=== PATIENT | female | born 1960 | race Caucasian/White ===

== ENCOUNTER 2023-11-19 13:22 | Outpatient (CLI) | payer BC, SELFPAY ==
[2023-11-19 13:25] LABS: Basophils # 0.1 K/mm3 (0-0.2); Basophils % 1.1 % (0.1-2.0); Eosinophils # 0.4 K/mm3 (0.0-0.4); Eosinophils % 5.6 % (0.1-12.0); Hemoglobin 12.7 g/dL (12.2-16.2); Lymphocytes # 2.3 K/mm3 (0.7-4.5); Lymphocytes % 34.2 % (10-50); Mean Corpuscular HGB Conc 30.9 g/dL (31.8-35.4); Mean Corpuscular Hemoglobin 29.6 pg (27.0-31.2); Mean Corpuscular Volume 95.8 fl (81-99); Monocytes # 0.5 K/mm3 (0.1-1.0); Monocytes % 6.9 % (1.7-9.3); Neutrophils # 3.5 K/mm3 (1.8-7.8); Neutrophils % 52.2 % (37.0-80.0); Platelet Count 307 K/mm3 (142-424); Red Blood Count 4.28 M/mm3 (4.20-5.40); White Blood Count 6.7 K/mm3 (4.8-10.8)
[2023-11-19 14:07] LABS: Hemoglobin A1C 8.1 % (4.0-6.0)
[2023-11-19 14:13] LABS: Alanine Aminotransferase 16 U/L (12-78); Albumin Level 4.2 g/dl (3.5-5.0); Albumin/Globulin Ratio 1.8 (1.1-1.8); Alkaline Phosphatase 90 U/L (38-126); Anion Gap 7.4 mEq/L (5-15); Aspartate Amino Transferase 22 U/L (14-36); Bilirubin,Total 0.8 mg/dl (0.2-1.3); Blood Urea Nitrogen 12 mg/dl (7-17); Calcium 9.5 mg/dl (8.4-10.2); Carbon Dioxide 29 mmol/L (22.0-30.0); Chloride 105 mmol/L (98-107); Chol/HDL Ratio 3.3 (1-3.5); Cholesterol 204 mg/dl (140-200); Estimated Glomerular Filt Rate 124 ml/min (>60); GFR (African American) 150 ML/MIN (>60); Globulin 2.3 g/dL (1.3-3.2); Glucose 147 mg/dl (74-100); HDL Cholesterol 62 mg/dl (40-60); Potassium 4.4 mmoL/L (3.5-5.1); Sodium 137 mmol/L (136-145); Total Protein,Serum 6.5 g/dl (6.3-8.2); Triglycerides 223 mg/dl (30-150); VLDL Cholesterol 45 mg/dL (0-40)
[2023-11-19 14:24] LABS: Direct LDL Cholesterol 90.83 mg/dL (100-129)
[2023-11-19 14:30] LABS: 25-OH Vitamin D, Total 29.9 ng/mL (30-100)
[2023-11-19 14:40] LABS: Thyroid Stimulating Hormone 1.19 uIU/mL (0.465-4.68)
== END 2023-11-19 23:59 | disposition home or self-care (01) ==
LOC: LAB.DROPOF 13:22
PROVIDERS: PCP Internal Medicine; Visit Provider Internal Medicine
DX: Z00.00 Encounter for general adult medical examination without abnormal findings (principal); Z13.1 Encounter for screening for diabetes mellitus; Z13.29 Encounter for screening for other suspected endocrine disorder; Z13.21 Encounter for screening for nutritional disorder; Z13.220 Encounter for screening for lipoid disorders; E78.5 Hyperlipidemia, unspecified; I10 Essential (primary) hypertension; I25.10 Atherosclerotic heart disease of native coronary artery without angina pectoris; E11.9 Type 2 diabetes mellitus without complications; Z79.4 Long term (current) use of insulin
CPT/HCPCS: 80050; 80053; 80061; 82306; 83036; 84439; 84443; 85025

== ENCOUNTER 2023-11-23 13:11 | Outpatient (CLI) | payer BC, SELFPAY ==
[2023-11-23 15:30] LABS: Microscopic, Urine URINE MICROSCOPIC (MICROSCOPIC)
[2023-11-23 16:38] LABS: HIV (1&2) Antibody Rapid NONREACTIVE (NONREACTIVE)
[2023-11-23 17:04] LABS: Appearance,Urine CLEAR (Clear); Bilirubin,Urine Negative (Negative); Blood, Urine Negative (Negative); Color,Urine YELLOW (Yellow); Glucose,Urine (UA) Negative (Negative); Ketones,Urine Negative (Negative); Leukocyte Esterase,Urine Negative (Negative); Nitrate,Urine Negative (Negative); PH,Urine 5.5 (5.0-8.5); Protein,Urine Negative (Negative); Specific Gravity, Urine 1.015 (1.005-1.030); Urobilinogen,Urine 0.2 EU/dl (0.2)
[2023-11-25 07:28] LABS: HCV Ab Non Reactive (Non Reactive)
== END 2023-11-23 23:59 | disposition home or self-care (01) ==
LOC: LAB.DROPOF 11-24 13:12
PROVIDERS: PCP Internal Medicine; Visit Provider Urology
DX: Z11.59 Encounter for screening for other viral diseases (principal); Z11.4 Encounter for screening for human immunodeficiency virus [HIV]; N39.0 Urinary tract infection, site not specified; R06.00 Dyspnea, unspecified; R00.2 Palpitations; I20.9 Angina pectoris, unspecified; I10 Essential (primary) hypertension
CPT/HCPCS: 36415; 81001; 86803; 87086; 87389; 93270

== ENCOUNTER 2023-11-26 09:16 | Outpatient (CLI) | payer BC, SELFPAY ==
--- NOTE | 2023-11-26 09:16 | US_ITS ---
FINAL REPORT CLINICAL HISTORY: .utis COMPARISON: None FINDINGS: RENAL ULTRASOUND Ultrasound images of the kidneys were obtained. Limited images of the liver parenchyma demonstrates normal echogenicity. The right kidney measures 11.3 cm in length. It is normal echogenicity. There is no hydronephrosis. The left kidney measures 12.3 cm in length. It is normal echogenicity. There is no hydronephrosis. IMPRESSION: Normal renal ultrasound. Reviewed, Interpreted and Dictated by Rod Rose MD Transcribed by Annalisa Brown Authenticated and [facility]
--- NOTE | 2023-11-26 09:16 | US_ITS ---
FINAL REPORT CLINICAL HISTORY: UTI COMPARISON: None FINDINGS: ULTRASOUND BLADDER WITH POST VOID RESIDUAL Bladder volumes were estimated based on 3 dimensional measurements, pre- and postvoid. Prevoid bladder volume: 240 mls Postvoid bladder volume: 9 mls There is questionable minimal debris in the dependent portion of the urinary bladder. Outpouching is noted at the urinary bladder consistent with a small cystocele. IMPRESSION: Small cystocele. Minimal debris. Negligible postvoid residual. Reviewed, Interpreted and Dictated by Rod Rose MD Transcribed by Annalisa Brown Authenticated and [facility]
== END 2023-11-26 23:59 | disposition home or self-care (01) ==
LOC: RAD 09:16
PROVIDERS: PCP Internal Medicine; Visit Provider Urology
DX: N39.0 Urinary tract infection, site not specified (principal); N81.10 Cystocele, unspecified
CPT/HCPCS: 76770; 76857

== ENCOUNTER 2023-12-03 20:00 | Emergency (ER) | payer BC, SELFPAY ==
[2023-12-03] VITALS (9 sets, daily range): BP systolic 105–177; BP diastolic 57–73; PULSE 55–68; RESP 10–24; TEMP 36.6–36.9; O2SAT 93–98; BMI 35.0
--- NOTE | 2023-12-03 20:04 | ECG_ITS ---
APPROVED REPORT Exam: Resting ECG HR:66 bpm ECG Measurements Heart Rate 66 AXES KS 162 P 61 QRSd 94 QRS -10 QT 417 T 52 QTc [address] segment/T wave abnormality in anterior leads, no STEMI Electronically signed by : RAKAN AVILES, 12/04/2023 03:24:20
--- NOTE | 2023-12-03 20:11 | XR_ITS ---
PROCEDURE INFORMATION: Exam: XR Chest Exam date and time: 12/03/2023 8:13 PM Age: 63 years old Clinical indication: Pain; Chest pressure; Additional info: Chest pain, shortness of breath TECHNIQUE: Imaging protocol: Radiologic exam of the chest. Views: 1 view. Total images: 1 COMPARISON: No relevant prior studies available. FINDINGS: Tubes, catheters and devices: EKG leads are present. Lungs: Left basilar atelectasis and prominent epicardial fat pad. No consolidation. No pulmonary vascular congestion or edema. Pleural spaces: Unremarkable. No pleural effusion. No pneumothorax. Heart/Mediastinum: Unremarkable. No cardiomegaly. No mediastinal widening or hilar enlargement. Bones/joints: Osteopenia. Moderate degenerative changes lower thoracic spine. Mild degenerative changes bilateral shoulders/AC joints. Multiple remote left rib fractures. IMPRESSION: No radiographically acute cardiopulmonary process.
--- NOTE | 2023-12-03 20:13 | HMH.EDGENADL ---
Discharge Plan Disposition Patient Disposition: Home, Self-Care Condition: Good Prescriptions Prescriptions: No Action oxybutynin chloride 10 mg tablet extended release 24hr 10 mg PO DAILY Qty: 90 3RF estradiol 0.01 % (0.1 mg/gram) cream See Rx Instructions vaginal .COMPLEX Qty: 42.5 2RF Rx Instructions: Using finger technique daily for two weeks and then twice weekly vaginally; nitrofurantoin macrocrystal [Macrodantin] 100 mg capsule 100 mg PO HS Qty: 30 0RF Rx Instructions: must administer with a meal/food nitroglycerin 0.4 mg tablet, sublingual 0.4 mg sublingual Q5-15M PRN Rx Instructions: do not exceed 3 doses per episode famotidine [Heartburn Relief (famotidine)] 10 mg tablet 10 mg PO BID montelukast 10 mg tablet 10 mg PO DAILY potassium chloride 10 mEq capsule, extended release 10 meq PO DAILY ergocalciferol (vitamin D2) 1,250 mcg (50,000 unit) capsule 1,250 mcg PO WEEKLY roflumilast 500 mcg tablet 500 mcg PO DAILY furosemide 20 mg tablet 20 mg PO DAILY fenofibrate nanocrystallized 48 mg tablet 48 mg PO DAILY aspirin [Adult Low Dose Aspirin] 81 mg tablet,delayed release (DR/EC) 81 mg PO DAILY albuterol sulfate 90 mcg/actuation HFA aerosol inhaler 2 puff inhalation Q4-6H PRN ipratropium-albuterol 0.5 mg-3 mg(2.5 mg base)/3 mL solution for nebulization 3 ml inhalation Q4-6H PRN Breztri Aerosphere 160-9-4.8 mcg/actuation HFA aerosol inhaler 2 inh inhalation BID sucralfate [Carafate] 100 mg/mL suspension 10 ml PO BID insulin glargine [Lantus Solostar U-100 Insulin] 100 unit/mL (3 mL) insulin pen 25 unit SQ DAILY nystatin 100,000 unit/mL suspension 1 ml PO DAILY Rx Instructions: swish and swallow insulin lispro [Humalog KwikPen Insulin] 100 unit/mL insulin pen 1 sliding scale dose SQ USEASDIRECTD polyethylene glycol 3350 17 gram/dose powder 17 g PO DAILY (DME) oxygen-air delivery systems Device See Rx Instructions .Route Rx Instructions: As directed Bradleyunjaro 2.5 mg/0.5 mL pen injector 2.5 mg SQ WEEKLY Qty: 2.5 0RF Rx Instructions: for 4 weeks (DME) Dexcom G7 Medical Education Manager Misc See Rx Instructions .Route Qty: 1 10RF Rx Instructions: As directed (DME) Dexcom G7 Sensor Device See Rx Instructions .Route Qty: 1 10RF Rx Instructions: As directed esomeprazole magnesium 40 mg capsule,delayed release(DR/EC) 40 mg PO DAILY Qty: 90 0RF atorvastatin 40 mg tablet 40 mg PO DAILY Qty: 90 0RF carvedilol 25 mg tablet 25 mg PO BID Qty: 180 0RF Rx Instructions: must administer with a meal/food Referrals Follow up/Referrals: Anthony Patricio DO [Primary Care Provider] - See instructions Activity Restrictions/Add. 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 Continue to wear the Holter monitor until completion. If you develop any new or worsening symptoms, or if you become concerned for your health for any reason, return to the emergency department for evaluation Clinical Impressions Clinical Impression: Chest pain Print Language Print Language: Vietnamese Discharge ED Provider: Reji Baird General Adult HPI General Chief complaint: Chest Pain Stated complaint: Chest Pain Time Seen by Provider: 12/03/23 20:00 Source of Information: Patient History of Present Illness HPI narrative: Zeke Gee is a 63y female with a past medical history of coronary artery disease, previous VA, COPD, CHF, hypertension, type 2 diabetes who presents to the ED from home for complaints of chest heaviness and shortness of breath. Patient states that she was in her recliner approximately 20 minutes prior to arrival when she developed heaviness in the middle of her chest. She states that this is associated with shortness of breath. She notes that she wears oxygen at night for her COPD and was wearing oxygen at the time. She states that she is followed by cardiology here at [facility] and is currently wearing a Holter monitor and is on day 11 out of 14. She also states that she is scheduled to have a stress test later this month as she has had 3 episodes similar to this over the past month. She states that she chronically has swelling in both of her legs that has not worsened recently. She states that she has nitroglycerin at home but does not like to take it because it gives her a headache and did not take any today. She takes a daily aspirin, which she took this morning. Related Data Home Medications ?Medication ?Instructions ?Recorded ?Confirmed albuterol sulfate 90 mcg/actuation 2 puff inhalation Q4-6H PRN 11/17/23 11/23/23 aerosol inhaler aspirin 81 mg tablet,delayed 81 mg PO DAILY 11/17/23 11/23/23 release (Adult Low Dose Aspirin) budesonide 160 mcg-glycopyr 9 2 inh inhalation BID 11/17/23 11/23/23 mcg-formot 4.8 mcg/actuation HFA inhaler (Breztri Aerosphere) ergocalciferol (vitamin D2) 1,250 1,250 mcg PO WEEKLY 11/17/23 11/23/23 mcg (50,000 unit) capsule famotidine 10 mg tablet (Heartburn 10 mg PO BID 11/17/23 11/23/23 Relief (famotidine)) fenofibrate nanocrystallized 48 mg 48 mg PO DAILY 11/17/23 11/23/23 tablet furosemide 20 mg tablet 20 mg PO DAILY 11/17/23 11/23/23 insulin glargine 100 unit/mL (3 25 unit SQ DAILY 11/17/23 11/23/23 mL) subcutaneous pen (Lantus Solostar U-100 Insulin) insulin lispro 100 unit/mL 1 sliding scale dose SQ 11/17/23 11/23/23 subcutaneous pen (Humalog KwikPen USEASDIRECTD (U-100) Insulin) ipratropium 0.5 mg-albuterol 3 mg 3 ml inhalation Q4-6H PRN 11/17/23 11/23/23 (2.5 mg base)/3 mL nebulization soln montelukast 10 mg tablet 10 mg PO DAILY 11/17/23 11/23/23 nitroglycerin 0.4 mg sublingual 0.4 mg sublingual Q5-15M PRN 11/17/23 11/23/23 tablet nystatin 100,000 unit/mL oral 1 ml PO DAILY 11/17/23 11/23/23 suspension oxygen-air delivery systems 11/17/23 11/23/23 polyethylene glycol 3350 17 17 g PO DAILY 11/17/23 11/23/23 gram/dose oral powder potassium chloride 10 mEq 10 meq PO DAILY 11/17/23 11/23/23 capsule,extended release roflumilast 500 mcg tablet 500 mcg PO DAILY 11/17/23 11/23/23 sucralfate 100 mg/mL oral 10 ml PO BID 11/17/23 11/23/23 suspension (Carafate) Previous Rx's ?Medication ?Instructions ?Recorded tirzepatide 2.5 mg/0.5 mL 2.5 mg (0.5 mL) SQ WEEKLY #2.5 mL 11/17/23 subcutaneous pen injector (Mounjaro) estradiol 0.01% (0.1 mg/gram) See Rx Instructions vaginal 11/23/23 vaginal cream .COMPLEX #42.5 grams nitrofurantoin macrocrystal 100 mg 100 mg PO HS #30 caps 11/23/23 capsule (Macrodantin) oxybutynin chloride 10 mg 10 mg PO DAILY #90 tabs 11/23/23 tablet,extended release 24 hr blood-glucose meter,continuous #1 ea 11/24/23 (Dexcom G7 Medical Education Manager) blood-glucose sensor (Dexcom G7 #1 ea 11/24/23 Sensor device) atorvastatin 40 mg tablet 40 mg PO DAILY #90 tabs 11/27/23 carvedilol 25 mg tablet 25 mg PO BID #180 tabs 11/27/23 esomeprazole magnesium 40 mg 40 mg PO DAILY #90 caps 11/27/23 capsule,delayed release Allergies Allergy/AdvReac Type Severity Reaction Status Date / Time No Known Allergies Allergy Verified 11/23/23 13:09 [facility] Disclaimer: The information contained in this section may have been updated after the patient was seen, as this information can be updated by other users. Medical History (Updated 12/03/23 @ 23:28 by Reji Baird MD) Angina pectoris Coronary artery disease Hx of appendicitis Abnormal findings on esophagogastroduodenoscopy (EGD) Oxygen desaturation during sleep CHF (congestive heart failure) Acid reflux COPD (chronic obstructive pulmonary disease) Vitamin D deficiency History of low potassium Hyperlipidemia Hypertension Type II diabetes mellitus Surgical History Hx of cholecystectomy History of esophagogastroduodenoscopy (EGD) History of colonoscopy Social History Smoking Status: Never smoker alcohol intake: former substance use type: denies use current occupational status: disabled Travel in the last 8 weeks: None ROS Obtained: Yes Systems reviewed as appropriate & no additional complaints except as documented Physical Exam General General appearance: alert, in no apparent distress and anxious Head Head exam: atraumatic Eye Eye exam: Present normal appearance ENT ENT exam: Present normal external ear exam Neck Neck exam: Present normal inspection Chest Chest inspection: Present normal inspection and symmetric chest wall rise; Absent tenderness Respiratory Respiratory exam: Present normal lung sounds bilaterally; Absent respiratory distress Cardiovascular Cardiovascular exam: Present regular rate, normal rhythm and normal heart sounds Abdominal Exam Abdominal exam: Present soft; Absent distention or tenderness Extremities Exam Extremities exam: Present normal inspection and edema Back Exam Back exam: Present normal inspection Neurological Exam Neurological exam: Present alert and oriented X3 Psychiatric Psychiatric exam: Present normal affect Skin Skin exam: Present warm and dry Medical Decision Making Medical Records Medical records reviewed: Yes I reviewed the patient's medical records. Screening: Per USPSTF and CDC recommendations, given the prevalence of disease in our region, it is our hospital?s policy to screen for HIV and viral Hepatitis for all patients aged 18 and over and those with ongoing risk factors. Gerardo Inquiry Pt receiving controlled substance: No Vital Signs: 12/03/23 20:01 12/03/23 20:31 12/03/23 20:39 Temperature 98.4 F Temperature Source Oral Pulse Rate 67 66 Pulse Rate [Apical] 66 Respiratory Rate 14 24 Blood Pressure 108/63 L Blood Pressure [Right Arm] 177/73 H Blood Pressure Mean [Right Arm] 107 Blood Pressure Source [Right Arm] Automatic Cuff Blood Pressure Position [Right Arm] Sitting 02 Sat by Pulse Oximetry 96 93 L Oxygen Delivery Method Room Air 12/03/23 21:00 12/03/23 21:31 12/03/23 22:01 Temperature Temperature Source Pulse Rate 63 60 Pulse Rate [Apical] Respiratory Rate 14 18 13 Blood Pressure 105/58 L 115/68 121/67 Blood Pressure [Right Arm] Blood Pressure Mean [Right Arm] Blood Pressure Source [Right Arm] Blood Pressure Position [Right Arm] 02 Sat by Pulse Oximetry 97 98 Oxygen Delivery Method 12/03/23 22:30 12/03/23 23:00 12/03/23 23:29 Temperature 97.9 F Temperature Source Oral Pulse Rate 68 55 L 59 L Pulse Rate [Apical] Respiratory Rate 10 L 22 16 Blood Pressure 118/63 115/57 L 115/57 L Blood Pressure [Right Arm] Blood Pressure Mean [Right Arm] Blood Pressure Source [Right Arm] Blood Pressure Position [Right Arm] 02 Sat by Pulse Oximetry 98 96 Oxygen Delivery Method Room Air Lab Data Lab Results 12/03/23 20:05: WBC 9.2, RBC 4.30, Hgb 12.9, Hct 37.8, MCV 87.7, MCH 30.0, MCHC 34.2, RDW 14.1, Plt Count 308, MPV 7.6, Neut % (Auto) 52.9, Lymph % (Auto) 34.3, [place] % (Auto) 6.4, Eos % (Auto) 5.3, Baso % (Auto) 1.1, Neut # (Auto) 4.9, Lymph # (Auto) 3.1, [place] # (Auto) 0.6, Eos # (Auto) 0.5 H, Baso # (Auto) 0.1, Sodium 138, Potassium 3.7, Chloride 104, Carbon Dioxide 26, Anion Gap 11.7, BUN 19 H, Creatinine 0.60, Estimated Creat Clear 91, Estimated GFR 101, Est GFR ( Amer) 122, Glucose 173 H, Calcium 9.6, Troponin I < 0.01, NT-Pro-B Natriuret Pep 99.4, TSH 0.96 12/03/23 22:46: Troponin I < 0.01 12/03/23 20:05 12/03/23 20:05 Orders (Tests/Meds): ED MEDICATIONS Discontinued Medications Generic Name Dose Route Start Last Admin Trade Name Filiberto PRN Reason Stop Dose Admin Nitroglycerin 0.4 mg 12/03/23 20:11 12/03/23 20:17 Nitroglycerin 0.4mg Sl Tablet SL 12/03/23 20:12 0.4 mg ONCE ONE Administration ORDERS Category Date Time Status CXR --portable [XR chest portable] Stat Exams 12/03/23 20:11 Completed BMP [Basic Metabolic Panel] Stat Lab 12/03/23 20:05 Completed BNP [NT Pro Brain Natriuretic Pep.] Stat Lab 12/03/23 20:05 Completed CBC w/Auto Diff [Complete Blood Count Auto Diff] Stat Lab 12/03/23 20:05 Completed TSH [Thyroid Stimulating Hormone] Stat Lab 12/03/23 20:05 Completed Troponin I Q3H Lab 12/03/23 22:46 Completed Troponin I Q3H Lab 12/04/23 02:15 Ordered Troponin I Stat Lab 12/03/23 20:05 Completed ECG Data Tracing #1: I reviewed this ECG and interpreted as documented below: EKG interpreted by me personally at 2004. Normal sinus rhythm. Ventricular rate of [address]pm[address] elevations or depressions. T wave inversions in V2 and V3. Medical Decision Narrative: Zeke Gee is a 63-year-old female with a history of coronary artery disease, hypertension, type 2 diabetes, COPD presents to the emergency department for complaints of chest heaviness in the middle of her chest that began approximately 20 minutes prior to arrival. Patient notes that she has had episodes like this in the past, making this the third episode this month. She is currently wearing a Holter monitor and is followed by cardiology here [facility]. She is on day with her Holter monitor. She states that she did not take any nitroglycerin prior to arrival as it often gives her headache. She took baby aspirin this morning. She was reporting some mild shortness of breath as well. On arrival, patient is hypertensive with blood pressure 177/73, heart rate 66 bpm, breathing comfortably on room air with oxygen saturation at 96%. Afebrile. Patient was amenable to receiving a sublingual nitroglycerin at this time. Differential diagnosis: ACS, pneumonia, palpitations, hyper/hypothyroidism, CHF, among others. The most comorbid conditions were considered and worked up based on her physical exam and history. Workup in the emergency department included: CBC with differential, BMP, troponin x 2, BNP, TSH, chest x-ray D-dimer was considered, however patient's Wells score is 0 and there is low concern for pulmonary embolism at this time. No D-dimer was pursued at this time. Patient's chest x-ray was interpreted by me personally. No focal consolidations, no widening of the mediastinum, no pneumothorax. Unremarkable chest x-ray. See radiology report for details. EKG, as stated above, was unremarkable for any acute pathology. Labs were interpreted by me personally and troponin was less than 0.01 x 2, TSH within normal limits, BNP within normal limits, BMP unremarkable nonactionable, CBC unremarkable and nonactionable On reassessment, patient reported resolution of her symptoms stated that she felt a lot better. Her workup today has not demonstrated any acute pathology and she has remained hemodynamically stable throughout her entire ED visit with improvement of her blood pressure without intervention. Given this, in fact that she has already established with cardiology with Holter monitor in place and close follow-up, is felt that she is appropriate for discharge at this time with plan to follow-up with them as scheduled. Return precautions were given. All questions were answered. She demonstrated understanding and was agreeable with this plan. She was then discharged from the emergency department in stable condition Critical Care Critical Care Time Critical Care Time: No
[2023-12-03] MEDS: NITROGLYCERIN 0.4MG SL TABLET 0.4 MG SL (20:17)
[2023-12-03 20:24] LABS: Basophils # 0.1 K/mm3 (0-0.2); Basophils % 1.1 % (0.1-2.0); Chloride 104 mmol/L (98-107); Eosinophils # 0.5 K/mm3 (0.0-0.4); Eosinophils % 5.3 % (0.1-12.0); Hematocrit 37.8 % (37.0-47.0); Hemoglobin 12.9 g/dL (12.2-16.2); Lymphocytes # 3.1 K/mm3 (0.7-4.5); Lymphocytes % 34.3 % (10-50); Mean Corpuscular HGB Conc 34.2 g/dL (31.8-35.4); Mean Corpuscular Volume 87.7 fl (81-99); Mean Platelet Volume 7.6 fl (7.4-10.4); Monocytes # 0.6 K/mm3 (0.1-1.0); Monocytes % 6.4 % (1.7-9.3); Neutrophils # 4.9 K/mm3 (1.8-7.8); Neutrophils % 52.9 % (37.0-80.0); Platelet Count 308 K/mm3 (142-424); Red Cell Distribution Width 14.1 % (11.5-17.5); White Blood Count 9.2 K/mm3 (4.8-10.8)
[2023-12-03 20:25] LABS: Potassium 3.7 mmoL/L (3.5-5.1); Sodium 138 mmol/L (136-145)
[2023-12-03 20:28] LABS: Anion Gap 11.7 mEq/L (5-15); Blood Urea Nitrogen 19 mg/dl (7-17); Calcium 9.6 mg/dl (8.4-10.2); Carbon Dioxide 26 mmol/L (22.0-30.0); Creatinine Clearance Estimated 91 mL/min (50-200); Estimated Glomerular Filt Rate 101 ml/min (>60); GFR (African American) 122 ML/MIN (>60); Glucose 173 mg/dl (74-100)
[2023-12-03 20:39] LABS: NT Pro Brain Natriuretic Pep. 99.4 pg/mL (0-125)
[2023-12-03 20:49] LABS: Troponin I < 0.01 ng/ml (0.00-0.034)
[2023-12-03 20:59] LABS: Thyroid Stimulating Hormone 0.96 uIU/mL (0.465-4.68)
--- NOTE | 2023-12-03 22:47 | PC.NURSE ---
2nd trop sent at 6850
[2023-12-03 23:20] LABS: Troponin I < 0.01 ng/ml (0.00-0.034)
== END 2023-12-03 23:40 | disposition home or self-care (01) ==
PROVIDERS: Emergency Provider Student in an Organized Health Care Education/Training Program; PCP Internal Medicine
DX: R07.9 Chest pain, unspecified (principal); R06.02 Shortness of breath
CPT/HCPCS: 71045; 80048; 83880; 84443; 84484; 85025; 93005; 99284

== ENCOUNTER 2023-12-21 14:06 | Outpatient (CLI) | payer BC, SELFPAY ==
--- NOTE | 2023-12-21 14:10 | MM_ITS ---
PROCEDURE INFORMATION: Exam: MG Bilateral Screening 3D Mammography Exam date and time: 12/21/2023 2:09 PM Age: 63 years old Clinical indication: Screening examination TECHNIQUE: Imaging protocol: Bilateral Screening tomosynthesis and 2D mammography including computer-aided detection (CAD) when performed. COMPARISON: No relevant prior studies available. FINDINGS: MAMMOGRAPHY: Breast composition: There are scattered areas of fibroglandular density. Mass: None. Architectural distortion: None. Calcifications: No suspicious calcifications. Asymmetric density: None. Skin thickening: None. Axillary adenopathy: None. IMPRESSION: No mammographic evidence of malignancy. Annual screening is recommended unless otherwise clinically indicated. ASSESSMENT: BI-RADS Category 1: Negative.
== END 2023-12-21 23:59 | disposition home or self-care (01) ==
LOC: RAD 14:07
PROVIDERS: PCP Internal Medicine; Visit Provider Internal Medicine
DX: R06.00 Dyspnea, unspecified (principal); R00.2 Palpitations; I20.9 Angina pectoris, unspecified; Z12.31 Encounter for screening mammogram for malignant neoplasm of breast
CPT/HCPCS: 77063; 77067

== ENCOUNTER 2024-01-05 06:50 | Outpatient (CLI) | payer BC, SELFPAY ==
--- NOTE | 2024-01-05 07:36 | NM_ITS ---
APPROVED REPORT Exam: Nuclear Stress Test Indication: Chest pain, SOB, Palpitations, HTN, DM, High cholesterol, Family history Patient Location: Outpatient Stress Tech: Amaya Nuñez MI Tech:Mariah Quinteros, ARRT, RT (R)(N) Ht: 5 ft 7 in Wt: 224 lbs Bra Size: 42D HR: 66 bpm BP: 131/70 mmHg BSA: 2.12 m2 TID: 1.16 BMI: 35.0 History: Chest pain, SOB, Palpitations, HTN, DM, High cholesterol, Family history Procedure: Patient received 0.4 mg of intravenous Lexiscan, resting heart rate 77 bpm, resting blood pressure 131/70 mmHg, with Lexiscan maximum heart rate achieved was 77 bpm which is % of the maximum predicted heart rate and blood pressure was 94/56 mmHg. With Lexiscan, patient denied any complaint of chest pain. Cardiac Stress and Resting SPECT Images: Cardiac Stress and Resting SPECT images were obtained using technetium 99m Myoview 32.2 mCi stress and 10.33 mCi at rest. Resting and stress imaging in supine and prone positions demonstrate no evidence of fixed or reversible perfusion defects. Gated imaging demonstrates normal global and regional LV systolic function. LVEF is calculated at 59%. Conclusion: No evidence of fixed or reversible perfusion defects. Gated imaging demonstrates normal global and regional LV systolic function. LVEF is calculated at 59%. Electronically signed by : Dora Francis MD 01/06/2024 09:23:45
[2024-01-05] MEDS: ISOTOPE MYOVIEW (PER STUDY) 1 DOSE IV (09:00)
[2024-01-05] MEDS: REGADENOSON 0.4MG/5ML SYRINGE 0.4 MG IV (09:00)
[2024-01-05] MEDS: SODIUM CHLORIDE 0.9% 10ML SYR (RAD ONLY) 10 ML IV ×2 (09:00)
--- NOTE | 2024-01-05 09:45 | CA_ITS ---
APPROVED REPORT EXAM: Comprehensive 2D, Doppler, and color-flow Echocardiogram Publication Manager: SHAD Urrutia, RVS Ht: 5 ft 6 in Wt: 224lbs BSA: 2.10 BP: 171/81 mmHg Indications: Chest Pain, Shortness of Breath, Diabetes, Palpitations, CAD, Hyperlipidemia 2D Dimensions IVSd 0.96 cm LVEF (Visual) 54.10 % PWd 0.96 cm LA Volume 69.10 mL LVDd 5.48 cm LA Volume Index 32.10 mL/m2 (M/F) 16-34 LVDs 3.93 cm Left Atrium 3.53 cm M-Mode Dimensions LA Diam 3.60 cm (1.9-4.0) EPSs 0.84 cm TAPSE 2.05 (<1.7) LV Diastology E Decel Time 310 (160-240 msec) E/A Ratio 0.73 MED A' 12.00 cm/s LAT A' 12.90 cm/s Aortic Valve WILFRIDO Index 1.16 cm2/m2 AoV Peak Royal. 106.0 (50-130 cm/s) AO Peak GR. 4.50 mmHg AO Mean GR. 2.30 (<5 mmHg) AO VTI 24.9 (18-25 cm) WILFRIDO (VTI) 2.49 (2.5-4.5 cm2) Mitral Valve MV A Velocity 87.0 (40-130 cm/s) E/A Ratio 0.73 Pulmonary Valve PV Peak Velocity 76.0 (50-150 cm/s) Tricuspid Valve TR P. Velocity 226.00 cm/s RAP Estimate 10.00 mmHg RVSP 30.40 mmHg Left Ventricle The left ventricle is normal size. The left ventricular systolic function is normal. The left ventricular ejection fraction is within the normal range. There is increased LV wall thickness. There is normal LV segmental wall motion. Transmitral Doppler flow pattern suggests impaired LV relaxation. LVEF is 55%. Right Ventricle Right ventricle is mildly dilated. Right ventricle is mildly hypokinetic. Atria Left atrium is mildly dilated. Right atrium is mildly dilated. There is no Doppler evidence of interatrial shunt. Aortic Valve The aortic valve is mildly thickened. There is no aortic valvular stenosis. No aortic regurgitation is present. Mitral Valve The mitral valve is normal in structure. No evidence of mitral valve stenosis. There is no mitral valve regurgitation noted. Tricuspid Valve The tricuspid valve leaflets are thin and pliable. Trace tricuspid regurgitation. There is insufficient TR jet to estimate RVSP. Pulmonic Valve The pulmonary valve is normal in structure. Trace pulmonic regurgitation. Great Vessels The aortic root is normal in size. IVC is normal in size and collapses >50% with inspiration. Pericardium There is no pericardial effusion. Other Information Study Quality: Fair Conclusion Normal LV systolic function. Mild RV dilation with mild reduction in RV function. Mild biatrial dilation. No significant valvular stenosis or regurgitation. Electronically signed by : Dora Francis MD 01/07/2024 12:37:55
== END 2024-01-05 23:59 | disposition home or self-care (01) ==
LOC: RAD 06:51
PROVIDERS: PCP Internal Medicine; Visit Provider Nurse Practitioner
DX: R00.2 Palpitations (principal); R06.00 Dyspnea, unspecified; I20.9 Angina pectoris, unspecified
CPT/HCPCS: 78452; 93017; 93018; 93306; A9502; J2785

== ENCOUNTER 2024-01-11 15:03 | Outpatient (CLI) | payer BC, SELFPAY ==
[2024-01-11 15:33] LABS: Basophils # 0.1 K/mm3 (0-0.2); Basophils % 1.4 % (0.1-2.0); Eosinophils # 0.3 K/mm3 (0.0-0.4); Hematocrit 39.5 % (37.0-47.0); Hemoglobin 13.4 g/dL (12.2-16.2); Lymphocytes # 2.6 K/mm3 (0.7-4.5); Lymphocytes % 32.4 % (10-50); Mean Corpuscular Volume 88.2 fl (81-99); Mean Platelet Volume 7.5 fl (7.4-10.4); Monocytes # 0.5 K/mm3 (0.1-1.0); Monocytes % 6.1 % (1.7-9.3); Neutrophils # 4.5 K/mm3 (1.8-7.8); Platelet Count 312 K/mm3 (142-424); Red Blood Count 4.49 M/mm3 (4.20-5.40)
[2024-01-11 15:48] LABS: Magnesium 1.9 mg/dl (1.6-2.3)
[2024-01-11 15:53] LABS: C-Reactive Protein 3.5 mg/L (0-4)
[2024-01-11 16:06] LABS: 25-OH Vitamin D, Total 33.9 ng/mL (30-100)
[2024-01-11 16:39] LABS: Vitamin B12 474 pg/mL (239-931)
[2024-01-15 18:10] LABS: D001-IgE D pteronyssinus <0.10 kU/L (Class 0); D002-IgE D farinae <0.10 kU/L (Class 0); E001-IgE Cat Dander <0.10 kU/L (Class 0); E005-IgE Dog Dander <0.10 kU/L (Class 0); E072-IgE Mouse Urine <0.10 kU/L (Class 0); G002-IgE Bermuda Grass <0.10 kU/L (Class 0); G006-IgE Timothy Grass <0.10 kU/L (Class 0); I006-IgE Cockroach, German <0.10 kU/L (Class 0); Immunoglobulin E, Total 3 IU/mL (6-495); M001-IgE Penicillium chrysogen <0.10 kU/L (Class 0); M002-IgE Cladosporium herbarum <0.10 kU/L (Class 0); M003-IgE Aspergillus fumigatus <0.10 kU/L (Class 0); M006-IgE Alternaria alternata <0.10 kU/L (Class 0); T001-IgE Maple/Box Elder <0.10 kU/L (Class 0); T003-IgE Common Silver Birch <0.10 kU/L (Class 0); T006-IgE Cedar, Mountain <0.10 kU/L (Class 0); T007-IgE Oak, White <0.10 kU/L (Class 0); T008-IgE Elm, American <0.10 kU/L (Class 0); T010-IgE Walnut <0.10 kU/L (Class 0); T011-IgE Maple Leaf Sycamore <0.10 kU/L (Class 0); T014-IgE Cottonwood <0.10 kU/L (Class 0); T015-IgE Ash, White <0.10 kU/L (Class 0); T022-IgE Pecan, Hickory <0.10 kU/L (Class 0); T070-IgE White Mulberry <0.10 kU/L (Class 0); W001-IgE Ragweed, Short <0.10 kU/L (Class 0); W011-IgE Thistle, Russian <0.10 kU/L (Class 0); W014-IgE Pigweed, Common <0.10 kU/L (Class 0); W018-IgE Sheep Sorrel <0.10 kU/L (Class 0)
[2024-01-20 09:58] LABS: Antinuclear Antibodies (ANA) NEGATIVE
== END 2024-01-11 23:59 | disposition home or self-care (01) ==
PROVIDERS: Nurse Practitioner Family; PCP Internal Medicine; Visit Provider Internal Medicine Pulmonary Disease
DX: R06.09 Other forms of dyspnea (principal); J84.9 Interstitial pulmonary disease, unspecified; J45.909 Unspecified asthma, uncomplicated; K21.9 Gastro-esophageal reflux disease without esophagitis; Z51.81 Encounter for therapeutic drug level monitoring; Z79.899 Other long term (current) drug therapy
CPT/HCPCS: 36415; 82306; 82607; 82785; 83735; 85025; 86003; 86038; 86140; 86225; 86235

== ENCOUNTER 2024-02-03 16:34 | Outpatient (CLI) | payer OTHER, SELFPAY ==
[2024-02-03 16:28] LABS: Coronavirus 19, PCR Not Detected (NotDetected); Influenza A, PCR Not Detected (NotDetected); Influenza B, PCR Not Detected (NotDetected)
== END 2024-02-03 23:59 | disposition home or self-care (01) ==
LOC: LAB.DROPOF 16:35
PROVIDERS: PCP Internal Medicine; Visit Provider Internal Medicine
DX: J02.9 Acute pharyngitis, unspecified (principal); R06.00 Dyspnea, unspecified; R05.9 Cough, unspecified; R53.83 Other fatigue
CPT/HCPCS: 87636

== ENCOUNTER 2024-03-17 09:32 | Outpatient (CLI) | payer OTHER, SELFPAY | END 2024-03-17 23:59 | disposition home or self-care (01) | LOC: RT 09:33 | PROVIDERS: PCP Nurse Practitioner; Visit Provider Internal Medicine Pulmonary Disease | DX: R06.09 Other forms of dyspnea (principal) | CPT/HCPCS: 94060; 94618; 94726; 94729 ==

== ENCOUNTER 2024-05-10 09:16 | Outpatient (CLI) | payer OTHER, SELFPAY ==
[2024-05-10 10:09] LABS: Basophils # 0.1 K/mm3 (0-0.2); Basophils % 0.5 % (0.1-2.0); Eosinophils # 0.1 K/mm3 (0.0-0.4); Eosinophils % 1.3 % (0.1-12.0); Hematocrit 36.9 % (37.0-47.0); Hemoglobin 12.3 g/dL (12.2-16.2); Lymphocytes # 1.9 K/mm3 (0.7-4.5); Lymphocytes % 18.3 % (10-50); Mean Corpuscular HGB Conc 33.3 g/dL (31.8-35.4); Mean Corpuscular Hemoglobin 30.5 pg (27.0-31.2); Mean Corpuscular Volume 91.6 fl (81-99); Mean Platelet Volume 10.7 fl (7.4-10.4); Monocytes # 0.5 K/mm3 (0.1-1.0); Monocytes % 4.8 % (1.7-9.3); Neutrophils # 7.7 K/mm3 (1.8-7.8); Neutrophils % 74.8 % (37.0-80.0); Platelet Count 252 K/mm3 (142-424); Red Blood Count 4.03 M/mm3 (4.20-5.40); Red Cell Distribution Width 13.1 % (11.5-17.5); White Blood Count 10.2 K/mm3 (4.8-10.8)
[2024-05-10 10:19] LABS: Alanine Aminotransferase 21 U/L (12-78); Albumin Level 4.1 g/dl (3.5-5.0); Alkaline Phosphatase 96 U/L (38-126); Aspartate Amino Transferase 21 U/L (14-36); Bilirubin,Direct 0.1 mg/dl (0.0-0.4); Bilirubin,Indirect 0.5 mg/dL (0.0-0.9); Bilirubin,Total 0.6 mg/dl (0.2-1.3); Bilirubin,Unconjugated 0.5 mg/dL (0.0-1.1); Blood Urea Nitrogen 29 mg/dl (7-17); Calcium 8.8 mg/dl (8.4-10.2); Carbon Dioxide 29 mmol/L (22.0-30.0); Chloride 104 mmol/L (98-107); Chol/HDL Ratio 2.2 (1-3.5); Cholesterol 178 mg/dl (140-200); Estimated Glomerular Filt Rate 84 ml/min (>60); GFR (African American) 102 ML/MIN (>60); Glucose 237 mg/dl (74-100); HDL Cholesterol 80 mg/dl (40-60); Sodium 136 mmol/L (136-145); Total Protein,Serum 6.1 g/dl (6.3-8.2); Triglycerides 201 mg/dl (30-150); VLDL Cholesterol 40 mg/dL (0-40)
[2024-05-10 10:30] LABS: Direct LDL Cholesterol 58.61 mg/dL (100-129)
[2024-05-10 10:49] LABS: Thyroid Stimulating Hormone 1.69 uIU/mL (0.465-4.68)
[2024-05-10 11:52] LABS: Free T4 (Free Thyroxine) 1.37 ng/dl (0.78-2.19)
== END 2024-05-10 23:59 | disposition home or self-care (01) ==
LOC: LAB 09:17
PROVIDERS: PCP Nurse Practitioner; Visit Provider Nurse Practitioner
DX: R00.2 Palpitations (principal); R93.1 Abnormal findings on diagnostic imaging of heart and coronary circulation; I51.7 Cardiomegaly; R06.09 Other forms of dyspnea; I25.10 Atherosclerotic heart disease of native coronary artery without angina pectoris; J44.9 Chronic obstructive pulmonary disease, unspecified; I10 Essential (primary) hypertension
CPT/HCPCS: 36415; 80048; 80061; 80076; 83735; 84439; 84443; 85025; 93270

== ENCOUNTER 2024-06-09 11:13 | Outpatient (CLI) | payer OTHER, SELFPAY ==
--- NOTE | 2024-06-09 11:17 | XR_ITS ---
FINAL REPORT CLINICAL HISTORY: dyspnea,wheezing COMPARISON: 12/03/2023 FINDINGS: CHEST 2 VIEWS PA AND LATERAL The heart is normal in size. The mediastinum is unremarkable. The lungs are underinflated with scarring at the left base. There is no pneumothorax. IMPRESSION: No acute process. Reviewed, Interpreted and Dictated by Rod Rose MD Transcribed by Tami Le Authenticated and [facility]
== END 2024-06-09 23:59 | disposition home or self-care (01) ==
LOC: RAD 11:15
PROVIDERS: PCP Nurse Practitioner; Visit Provider Nurse Practitioner
DX: R06.09 Other forms of dyspnea (principal); R06.2 Wheezing
CPT/HCPCS: 71046

== ENCOUNTER 2024-06-30 07:38 | Outpatient (CLI) | payer OTHER, SELFPAY ==
--- NOTE | 2024-06-30 | CA_ITS ---
APPROVED REPORT EXAM: Comprehensive 2D, Doppler, and color-flow Echocardiogram Chrome Plater: Jewels Hooper RVT Ht: 5 ft 7 in Wt: 226lbs BSA: 2.13 BP: 155/74 mmHg Indications: DYSPENA,CAD,CARDIOMEGALY,COPD,CP,PALPS,A-FIB,LARS,CHF,DM,HTN,HLD 2D Dimensions Left Atrium 2.99 cm F: 2.7 - 3.8 LA Volume 31.50 mL RVID Base (AP4) 2.77 cm (M/F) 2.5-4.1 LA Volume Index 14.79 mL/m2 (M/F) 16-34 LVOT 2.17 cm (M/F) 1.5-2.5 EF AP4 53.10 % GL Strain -17.4 % M-Mode Dimensions RVDd 3.16 cm (0.9-2.6) LVDd 5.05 cm (3.5-5.7) Ao Diam 3.61 cm (2.0-3.7) LVDs 3.48 cm (3.5-5.7) IVSd 0.64 cm (0.6-1.1) PWd 0.72 cm (0.6-1.1) EF (Teich) 58.50% FS 31.10% EDV (Teich) 121.00 mL TAPSE 2.02 (<1.7) ESV (Teich) 50.20 mL LV Diastology E Decel Time 194 (160-240 msec) E/A Ratio 0.9 MED E' 9.3 (>= 7 cm/sec) E'/MED E' Ratio 7.75 (<= 14) LAT E' 8.6 (>= 10 cm/sec) E/LAT E' Ratio 8.38 (<= 14) Aortic Valve LVOT Max 101.0 (70-110 cm/s) WILFRIDO Index 1.57 cm2/m2 LVOT VTI 21.74 cm AoV Peak Royal. 109.0 (50-130 cm/s) AO Peak GR. 4.20 mmHg AO Mean GR. 2.80 (<5 mmHg) AO VTI 24.1 (18-25 cm) WILFRIDO (VTI) 3.34 (2.5-4.5 cm2) Mitral Valve MV E Max Royal. 72.0 (40-130 cm/s) MV A Velocity 83.0 (40-130 cm/s) E/A Ratio 0.87 MV Decel. Time 194 (160-240 ms) Tricuspid Valve TR P. Velocity 281.00 cm/s RAP Estimate 10.00 mmHg RVSP 41.50 mmHg Left Ventricle The left ventricle is normal size. The left ventricular systolic function is normal. The left ventricular ejection fraction is within the normal range. There is increased LV wall thickness. There is normal LV segmental wall motion. Transmitral Doppler flow pattern suggests impaired LV relaxation. LVEF is 55%. Right Ventricle Right ventricle is mildly dilated. The right ventricular systolic function is normal. Atria Left atrium is mildly dilated. Right atrium is mildly dilated. There is no Doppler evidence of interatrial shunt. Aortic Valve The aortic valve is mildly thickened. Trace aortic regurgitation. There is no aortic valvular stenosis. Mitral Valve The mitral valve leaflets are mildly thickened. Mild mitral regurgitation. No evidence of mitral valve stenosis. Tricuspid Valve Tricuspid valve is grossly normal in structure and function. Mild tricuspid regurgitation. RVSP is 20-25 mmHg. Pulmonic Valve The pulmonary valve is normal in structure. Trace pulmonic regurgitation. Great Vessels The aortic root is normal in size. IVC is normal in size and collapses >50% with inspiration. Pericardium There is no pericardial effusion. Other Information Study Quality: Fair Conclusion Normal biventricular systolic function. Mild RV dilation. Mild biatrial dilation. Mild MR, mild TR. Electronically signed by : Dora Francis MD 06/30/2024 13:05:11
== END 2024-06-30 23:59 | disposition home or self-care (01) ==
LOC: RT 07:39
PROVIDERS: PCP Nurse Practitioner; Visit Provider Nurse Practitioner
DX: I08.1 Rheumatic disorders of both mitral and tricuspid valves (principal); I11.0 Hypertensive heart disease with heart failure; I50.9 Heart failure, unspecified; I25.10 Atherosclerotic heart disease of native coronary artery without angina pectoris; J44.9 Chronic obstructive pulmonary disease, unspecified; I48.91 Unspecified atrial fibrillation; G47.33 Obstructive sleep apnea (adult) (pediatric); E11.9 Type 2 diabetes mellitus without complications; E78.5 Hyperlipidemia, unspecified
CPT/HCPCS: 93306

== ENCOUNTER 2025-01-06 15:34 | Outpatient (CLI) | payer MEDICARE, OTHER, SELFPAY ==
--- NOTE | 2025-01-06 15:39 | MM_ITS ---
PROCEDURE INFORMATION: Exam: MG Bilateral Screening 3D Mammography Exam date and time: 01/06/2025 3:46 PM Age: 64 years old Clinical indication: Screening examination TECHNIQUE: Imaging protocol: Bilateral Screening tomosynthesis and 2D mammography including computer-aided detection (CAD) when performed. COMPARISON: 1. MG MM DIG SCREENING MAMM BI W/CAD 12/21/2023 2:09 PM 2. MG MM BREAST HALI SCREEN BILAT 09/26/2021 10:08 AM FINDINGS: MAMMOGRAPHY: Breast composition: The breasts are almost entirely fatty. Mass: None. Architectural distortion: None. Calcifications: No suspicious calcifications. Asymmetric density: None. Skin thickening: None. Axillary adenopathy: None. IMPRESSION: No mammographic evidence of malignancy. Annual screening is recommended unless otherwise clinically indicated. ASSESSMENT: BI-RADS Category 1: Negative.
== END 2025-01-06 23:59 | disposition home or self-care (01) ==
PROVIDERS: PCP Nurse Practitioner; Visit Provider Nurse Practitioner
DX: Z12.31 Encounter for screening mammogram for malignant neoplasm of breast (principal)
CPT/HCPCS: 77063; 77067